=== PATIENT | male | born 1975 | race African-American/Black ===

== ENCOUNTER 2019-04-11 12:35 | Emergency (ER) | payer SELFPAY ==
[2019-04-11 12:41] VITALS: BP 130/78; PULSE 70; RESP 16; TEMP 36.4; O2SAT 100
--- NOTE | 2019-04-11 13:59 | W.ED.GENAD ---
Discharge Plan Disposition Patient Disposition: HOME Condition: Stable Discharge Details Chief Complaint: Laceration Clinical Impression: Laceration of hand, right Primary Care Provider: Daquan Lemon ED Provider: Silvino Womack Discharge Instructions Instructions: Care For Your Stitches (ED), Laceration (ED) Additional Instructions: Return to the emergency department immediately for any signs of infection, otherwise keep wound clean and dry and keep dressing in place if possible for the first 24 to 48 hours and then you may change dressing as needed per drainage. If healing well return to emergency department 10 to 12 days for suture removal. Referrals: [facility] Emergency Dept. [Outside] (In 10 to 12 days for suture removal) Discharge Data Discharge Date/Time-TO BE ENTERED AT DEPARTURE: 04/11/19 14:07 Medical Decision Making Right hand laceration, superficial to the base/radial aspect of the wrist. Sensory, cap refill, and motor along with tendon function all normal distal to injury. Tetanus was given in July per patient. 3.5ml 1% lidocaine. 2.3 cm laceration that is superficial with no deep structure involvement. Thorough irrigation. Three 4-0 Prolene sutures using simple interrupted technique were used to close the wound. Bacitracin and sterile bandage were placed afterwards. No complications and patient tolerated procedure well. HPI General Mode of arrival: ambulatory. Date/Time Provider Initiated Documentation: 04/11/19 12:44. Limitations to Documentation: no limitations. Information obtained by: patient and RN notes reviewed. History of Present Illness 43 year old M presents to the emergency department with the chief complaint of right hand laceration, described as mild, Quality is described as other (denies pain), and is localized to the right and upper extremity. Patient started experiencing this hour(s) (1) Patient notes no other symptoms.. Patient did receive the following treatments prior to arrival, none Related Data Allergies Allergy/AdvReac Type Severity Reaction Status Date / Time No Known Allergies Allergy Unverified 04/11/19 12:44 General Stated Complaint: Laceration SAMRA: 4 Review of Systems Cardiovascular Denies syncope and Denies lightheadedness Musculoskeletal Denies deformity, Denies limited range of motion and Denies numbness Integumentary/Breasts Reports as per HPI Neurologic Denies syncope, Denies numbness and Denies paresthesias [facility] Social History Smoking/Tobacco Use Status: Never Alcohol Intake: never Substance use type: does not use Do you feel safe at home: Yes Do you feel safe in your relationship?: Yes Exam Const General: cooperative and no acute distress Orientation: alert, awake and oriented x3 Limitations: mental status not altered Resp Effort & Inspection: normal respiratory effort and able to speak in complete sentences Cardio Rate: regular rate Rhythm: regular rhythm Neuro General: alert, awake, oriented x3, gait normal, tone normal, moves all extremities, normal light touch, pain and propioception and no focal motor deficits Motor: no movement abnormalities noted Sensory Exam: no sensory deficits noted Extrem Right upper extremity: hand Details: normal capillary refill, neuromotor exam normal, neurosensory exam normal, tendon exam normal, normal ROM of fingers, no swelling and laceration; no foreign bodies Course Vital Signs Temperature 36.4 C L 04/11/19 12:41 Pulse 70 04/11/19 12:41 Respiratory Rate 16 04/11/19 12:41 Blood Pressure 130/78 04/11/19 12:41 Pulse Oximetry 100 04/11/19 12:41 Temperature 36.4 C L 04/11/19 12:41 Pulse 70 04/11/19 12:41 Respiratory Rate 16 04/11/19 12:41 Respiratory Effort 04/11/19 12:44 Blood Pressure 130/78 04/11/19 12:41 Pulse Oximetry 100 04/11/19 12:41 Oxygen Delivery Method Room Air 04/11/19 12:41 Oxygen Flow Rate 0 04/11/19 12:41
--- NOTE | 2019-04-11 14:04 | ED.GENADUL_ITS ---
Discharge Plan Disposition Patient Disposition: HOME Condition: Stable Discharge Details Chief Complaint: Laceration Clinical Impression: Laceration of hand, right Primary Care Provider: Daquan Lemon ED Provider: Silvino Womack Discharge Instructions Instructions: Care For Your Stitches (ED), Laceration (ED) Additional Instructions: Return to the emergency department immediately for any signs of infection, otherwise keep wound clean and dry and keep dressing in place if possible for the first 24 to 48 hours and then you may change dressing as needed per drainage. If healing well return to emergency department 10 to 12 days for suture removal. Referrals: [facility] Emergency Dept. [Outside] (In 10 to 12 days for suture removal) Discharge Data Discharge Date/Time-TO BE ENTERED AT DEPARTURE: 04/11/19 14:07 Medical Decision Making Right hand laceration, superficial to the base/radial aspect of the wrist. Sensory, cap refill, and motor along with tendon function all normal distal to injury. Tetanus was given in July per patient. 3.5ml 1% lidocaine. 2.3 cm laceration that is superficial with no deep structure involvement. Thorough irrigation. Three 4-0 Prolene sutures using simple interrupted technique were used to close the wound. Bacitracin and sterile bandage were placed afterwards. No complications and patient tolerated procedure well. HPI General Mode of arrival: ambulatory . Date/Time Provider Initiated Documentation: 04/11/19 12:44 . Limitations to Documentation: no limitations . Information obtained by: patient and RN notes reviewed . History of Present Illness 43 year old M presents to the emergency department with the chief complaint of right hand laceration, described as mild, Quality is described as other (denies pain), and is localized to the right and upper extremity. Patient started experiencing this hour(s) (1) Patient notes no other symptoms.. Patient did receive the following treatments prior to arrival, none Related Data Allergies Allergy/AdvReac Type Severity Reaction Status Date / Time No Known Allergies Allergy Unverified 04/11/19 12:44 General Stated Complaint: Laceration SAMRA: 4 Review of Systems Cardiovascular Denies syncope and Denies lightheadedness Musculoskeletal Denies deformity, Denies limited range of motion and Denies numbness Integumentary/Breasts Reports as per HPI Neurologic Denies syncope, Denies numbness and Denies paresthesias [facility] Social History Smoking/Tobacco Use Status: Never Alcohol Intake: never Substance use type: does not use Do you feel safe at home: Yes Do you feel safe in your relationship?: Yes Exam Const General: cooperative and no acute distress Orientation: alert, awake and oriented x3 Limitations: mental status not altered Resp Effort & Inspection: normal respiratory effort and able to speak in complete sentences Cardio Rate: regular rate Rhythm: regular rhythm Neuro General: alert, awake, oriented x3, gait normal, tone normal, moves all extremities, normal light touch, pain and propioception and no focal motor deficits Motor: no movement abnormalities noted Sensory Exam: no sensory deficits noted Extrem Right upper extremity: hand Details: normal capillary refill, neuromotor exam normal, neurosensory exam normal, tendon exam normal, normal ROM of fingers, no swelling and laceration; no foreign bodies Course Vital Signs Temperature 36.4 C L 04/11/19 12:41 Pulse 70 04/11/19 12:41 Respiratory Rate 16 04/11/19 12:41 Blood Pressure 130/78 04/11/19 12:41 Pulse Oximetry 100 04/11/19 12:41 Temperature 36.4 C L 04/11/19 12:41 Pulse 70 04/11/19 12:41 Respiratory Rate 16 04/11/19 12:41 Respiratory Effort 04/11/19 12:44 Blood Pressure 130/78 04/11/19 12:41 Pulse Oximetry 100 04/11/19 12:41 Oxygen Delivery Method Room Air 04/11/19 12:41 Oxygen Flow Rate 0 04/11/19 12:41
== END 2019-04-11 14:07 | disposition home or self-care (01) ==
LOC: ER 14:18
PROVIDERS: Emergency Provider Nurse Practitioner Family; PCP Physician Assistant
DX: S61.411A Laceration without foreign body of right hand, initial encounter (principal); W45.8XXA Other foreign body or object entering through skin, initial encounter
CPT/HCPCS: 12001